=== PATIENT | female | born 1950 | race Caucasian/White ===

== ENCOUNTER 2019-04-13 12:29 | Day surgery (SDC) | payer MEDICARE, OTHER ==
[~2019-04-13 12:29] MED LIST: BUPIVACAINE HCL 0.5% (5MG/ML) PF 10ML VIAL IV ONE; DEXMEDETOMIDINE HCL 200 MCG/2 ML VIAL IV ONE; LACTATED RINGERS 1,000 ML IV.SOLN IV ONE; LIDOCAINE HCL 1% PF 300MG/30ML VIAL ONE; LIDOCAINE HCL 2% PF 100MG/5ML VIAL IJ ONE; MIDAZOLAM HCL 2 MG/2 ML VIAL ONE; fentaNYL CITRATE/PF 100 MCG/2 ML INJ. ONE; methylPREDNISolone ACETATE 80 MG/ML VIAL IM ONE
[2019-04-13] MEDS ORDERED: MIDAZOLAM HCL 2 MG/2 ML VIAL ONE (14:09)
== END 2019-04-13 17:15 | disposition home or self-care (01) ==
LOC: OPSURG 12:29
DX: M25.561 Pain in right knee (principal); M17.11 Unilateral primary osteoarthritis, right knee
CPT/HCPCS: 64640; J1040; J2001; J2250; J3010; J3490; J7120